=== PATIENT | female | born 1950 | race Hispanic/Latino ===

== ENCOUNTER 2022-03-21 08:10 | Emergency (ER) | payer SELFPAY ==
[2022-03-21 08:18] VITALS: BP 134/64; PULSE 69; RESP 14; TEMP 36.5; O2SAT 100
--- NOTE | 2022-03-21 08:31 | ED.EAR ---
HPI - Ear Problem General Chief complaint: Ear Stated complaint: Ear pain Time Seen by Provider: 03/21/22 08:31 Source: patient, family, RN notes reviewed and old records reviewed Mode of arrival: ambulatory Limitations: language barrier and other (brother here with patient to interpret) History of Present Illness HPI Narrative: 72-year-old female who presents to [facility] accompanied by brother, patient speaks Stat[place], brother translating for patient, with complaints of left ear pain for about 2 weeks duration. Patient also reports that she has had some cough and nasal congestion going on for several weeks. Patient has not had any fevers, or chills. Patient reports that she has had COVID vaccinations and also flu shot.Patient has used some OTC ear drops and taken Tylenol and Ibuprofen MD Complaint: ear pain Location: left ear Duration: constant Treatment prior to arrival: eardrops and oral analgesic Related Data Home Medications Medication Instructions Recorded Confirmed telmisartan 03/21/22 Allergies Allergy/AdvReac Type Severity Reaction Status Date / Time No Known Allergies Allergy Verified 03/21/22 08:18 Review of Systems Review of Systems: CONSTITUTIONAL: Denies malaise, chills, sweats, or fever. EYES: Denies visual changes, redness, or discharge. ENT: Reports rhinorrhea, congestion, sinus pain reports left otalgia denies sore throat. CARDIOVASCULAR: Denies chest pain, palpitations, or edema. RESPIRATORY: Reports cough.? Denies dyspnea. GASTROINTESTINAL: Denies abdominal pain, nausea, vomiting, diarrhea SKIN: Denies rash or itching. MUSCULOSKELETAL: Denies myalgia. NEUROLOGIC: Denies headache. All systems reviewed & are unremarkable except as noted in HPI and below PMFSH Past Medical History Medical History (Updated 03/24/22 @ 20:34 by Roxanne Grimm NP) Hypertension Social History Social History (Updated 03/24/22 @ 20:28 by Roxanne Grimm NP) Smoking status: Never smoker Alcohol intake: current Alcohol use details: rare social Substance use type: does not use Gender identity (if verbalized by the patient): Female Comments At time of signature, agree with nursing past medical, surgical, social and family history. There is no relevant family history pertinent to the presenting complaint Exam Narrative: GENERAL: Well-appearing, well-nourished, and in no acute distress. HEAD: Normocephalic EYES: PERRLA, conjunctivae clear ENT: Nares clear, turbinates edematous and erythematous, clear discharge. Mucous membranes moist.Left TM red and canal is also excoriated, Right TM pearly strange with dull light reflex ; no tragal tenderness. Oropharynx erythematous without lesions. Tonsils not enlarged and without exudate, no drooling, no hoarseness, no trismus, uvula midline. NECK: Supple. No lymphadenopathy CHEST: Clear to auscultation, breath sounds equal. No wheezing, rhonchi, rales, or stridor. No respiratory distress, speaks in full sentences.dry cough noted with SAO2 100% on room air HEART: Regular rate and rhythm. No murmur heard. SKIN: Warm, dry, no rash. NEURO: Alert and oriented x3. PSYCH: Normal mood and affect Course Course Emergency Course: Patient is aware of diagnosis, understands and agrees to treatment plan.? Anticipatory guidance given.? Patient agrees to follow-up as directed and is aware of reasons to seek care at the emergency department. Portions of this record may have been created with voice recognition software Level of Care: Express Care Visit Vital Signs Vital signs: Vital Signs Temperature 36.5 C 03/21/22 08:18 Pulse Rate 69 03/21/22 08:18 Respiratory Rate 14 03/21/22 08:18 Blood Pressure 134/64 03/21/22 08:18 Pulse Oximetry 100 03/21/22 08:18 Oxygen Delivery Room Air 03/21/22 08:18 Temperature 36.5 C 03/21/22 08:18 Pulse Rate 69 03/21/22 08:18 Respiratory Rate 14 03/21/22 08:18 Blood Pressu
== END 2022-03-21 08:59 | disposition home or self-care (01) ==
PROVIDERS: Emergency Provider Registered Nurse
DX: H66.92 Otitis media, unspecified, left ear (principal); H60.92 Unspecified otitis externa, left ear; I10 Essential (primary) hypertension
CPT/HCPCS: 99213; G0463